=== PATIENT | male | born 1995 | race Caucasian/White ===

== ENCOUNTER 2019-06-13 09:57 | Emergency (ER) | payer SELFPAY ==
[2019-06-13 09:59] VITALS: BP 150/78; PULSE 111; RESP 17; TEMP 37; O2SAT 100; BMI 25.4
--- NOTE | 2019-06-13 10:29 | ED.VISSUMM ---
- ER Visit Summary Date of Service: 06/13/19 Chief Complaint: Left lower jaw dental pain and swelling History of Present Illness: The patient is a 24 M denies any significant past medical history. Patient states for last several days has had pain in his left lower molar and now some swelling. Denies any fever or chills. Physical Examination: Young male no acute distress vital signs stable afebrile. He does not look septic or toxic. H EENT exam moist mucous membranes. Very poor decaying dentition multiple cavities and plaque. His left lower molar appears to be decaying. There is mild gingival swelling. There is no obvious abscess. He has mild swelling of his left lower jaw. He is able to open close his mouth without any difficulty. No trouble swallowing. Floor of his mouth is nontender nonswollen. Currently there is nothing to drain. Neck nontender no lymphadenopathy. Lungs are clear. Heart regular rhythm no murmur. Abdomen soft. Moving all 4 extremities. No edema. Neurologically is awake and alert. Test Results: None Emergency Department Course and Treatment: Patient has very poor dentition with an infected left lower molar. Will be given a dose of Pen-Vee K here. Based on at home 4 times a day. Follow-up with [facility] clinic. Treatment Plan: NDKA 4 times daily. Tylenol Motrin for pain. Follow-up. Disposition: dc Impression: Left dental abscess Dental pain This note was generated with [employer] dictation software. It may contain incorrect words, spelling, and punctuation that were not noted in review of the chart prior to signing ED Disposition - Plan for ED Patient: Referrals: Care Physician,No Primary [Primary Care Provider] -
--- NOTE | 2019-06-13 10:31 | ED.DEP ---
ED Disposition - Plan for ED Patient: Disposition: Home or Assisted Living Instructions: ED Tooth Pain, Dental Abscess Prescriptions: Penicillin Vk [Pen-Vee K , V-Cillin K] 500 mg PO 4X/DAY #40 tab Prescription Printed Referrals: [facility] [NON-STAFF] - As soon as possible Additional Instructions: Ice to your jaw. Tylenol Motrin for pain. Penicillin 4 times a day for the dental infection. Follow-up with either the [facility] or a local dentist as soon as possible.
[2019-06-13] MEDS: Penicillin Vk 250 MG Tablet 500 MG PO (10:38)
[2019-06-13 10:39] VITALS: BP 139/67; PULSE 98; RESP 18; O2SAT 97
== END 2019-06-13 10:46 | disposition home or self-care (01) ==
LOC: ED 10:42
PROVIDERS: Emergency Provider Emergency Medicine
DX: K04.7 Periapical abscess without sinus (principal); K02.9 Dental caries, unspecified; Z72.0 Tobacco use
CPT/HCPCS: 99283

== ENCOUNTER 2021-07-11 07:30 | Emergency (ER) | payer OTHER, SELFPAY ==
[2021-07-11 07:31] VITALS: BP 130/97; PULSE 64; RESP 14; TEMP 36.7; O2SAT 97; BMI 26.3
--- NOTE | 2021-07-11 07:36 | ED.VIS.DENTA ---
HPI History of Present Illness Chief Complaint: Dental Detail of Chief Complaint: Facial swelling due to dental disease Informant: patient and spouse/S.O. Onset/Context/Timing Onset: Today Context: Sudden Onset Timing: Continuous Quality: Facial swelling left maxillary region Location: Left upper teeth Current Severity: Mild Maximum Severity: Mild Worsened by: Nothing Relieved by: NSAIDs and Topicals Associated Symptoms Assocated Symptom - Dental: face swelling; Negative for fever, jaw swelling, cold sensitivity or hot sensitivity Narrative Narrative: Patient is a 26-year-old male who presents because of swelling left side of his face that he noted this morning upon waking. He does admit that his teeth are messed up . He denies sensitivity to hot or cold. He denies fever or chills. He denies rheumatic fever, heart murmur or mitral valve prolapse. He is not immune suppressed. He has no allergies. He is able to open his mouth and closes mouth completely. He has had no drooling. Prior similar symptoms: No Recent Illness/Hospitalization: No PFSH PFSH Medical History no medical history no medical history Home Medications penicillin V potassium 500 mg PO 4X/DAY #40 tab 06/13/19 [Rx Last Taken Unknown] clindamycin HCl [Cleocin HCl] 300 mg PO Q6H #40 capsule 07/11/21 [Rx Last Taken Unknown] hydrocodone-acetaminophen 1 tab PO Q6H PRN PRN 3 Days #10 tablet 07/11/21 [Rx Last Taken Unknown] naproxen 500 mg PO BID #14 tab 07/11/21 [Rx Last Taken Unknown] Allergy/AdvReac Type Severity Reaction Status Date / Time No Known Allergies Allergy Verified 07/11/21 07:30 Surgical History no surgical history no surgical history Social History (Updated 07/11/21 @ 07:[address] Estuardo Chowdary MD) household members: significant other Smoking Status: Light Smoker (<10/day) substance use type: does not use ROS ROS ED Constitutional Constitutional ED: Denies chills, fever(s), subjective or sweats Eyes Eyes: Denies blurry vision or change in vision ENT ENT ED: Reports other Details: Facial swelling of the left maxillary region. Poor dentition ; Denies ear pain, rhinorrhea or sore throat Cardiovascular Cardiovascular: Reports other Details: No history of medic fever, heart murmur, mitral valve prolapse or SBE. ; Denies chest pain, palpitations or racing heartbeat Respiratory/Chest Respiratory/Chest: Denies cough or dyspnea Gastrointestinal Gastrointestinal: Denies nausea or vomiting Musculoskeletal Musculoskeletal: Denies neck pain Integumentary Reports abscess; Denies Abrasions or rash Neurologic Neurologic: Denies headache(s) Allergic/Immunologic Allergic/Immunologic ED: Denies mouth swelling, tongue swelling or urticaria EXAM Physical Exam Const Vital Signs: 07/11/21 07:31 Temperature 98.1 F Temperature Source Temporal Pulse Rate 64 Respiratory Rate 14 Blood Pressure 130/97 H Blood Pressure Mean 108 Pulse Ox 97 Oxygen Delivery Method Room Air Positive well nourished and well developed General Appearance ED: well developed, NAD and other HEENT HEENT Narrative: Patient has remanence of teeth with erosion to the gumline. There is swelling of the gum. There is facial swelling. There is no evidence of facial cellulitis. There is no trismus. There is no evidence of Ludewig's angina. Negative for trauma or tenderness Face and Sinus: sinuses nontender Mouth ED: Yes oral and palatal mucosa normal, Yes lips normal, Yes tongue normal, Yes salivary gland normal and No mouth trauma Mouth: oral and palatal mucosa normal, lips normal, tongue normal, salivary gland normal and No mouth trauma Teeth and Gingiva: abnormal tooth and associated gingiva, caries, gingiva abnormal and poor dentition Throat: posterior oropharynx normal Eyes PERRL and EOMs intact bilaterally Eyes Narrative: There is no pain with ocular movement. General Eye ED: Negative for pale conjunctiva or scleral icterus Neck no lymphadenopathy, supple and no JVD General: normal visual inspection; Negative for anterior neck swelling, tenderness or submandibular swelling Resp normal respiratory effort and clear to auscultation bilaterally Cardio regular rate, regular rhythm, S1 normal heart sound, S2 normal heart sound and no murmurs Neuro oriented x3 and CN's II-XII intact bilaterally Sensorium / Orientation: alert Psych mental status grossly normal Skin no rashes or lesions noted MDM MDM MDM Narrative Medical decision making narrative: Patient has evidence of poor dentition with dental abscess. He has erosion of teeth to gumline. This involves many teeth i.e. canine, bite cuspids and molars. The facial swelling is on the left. We will treat with antibiotics and refer to Dr. Horton. Discharge Plan Triage Chief Complaint: Dental ED Provider: Estuardo Chowdary Dx/Rx/DC Orders Clinical Impression: Dental abscess, Dental caries extending into pulp Prescriptions: New clindamycin HCl [Cleocin HCl] 300 MG capsule 300 mg PO Q6H Qty: 40 RF: 0 hydrocodone-acetaminophen [hydrocodone-acetaminophen] 1 TABLET tablet 1 tab PO Q6H PRN PRN (Reason: Pain) 3 Days Qty: 10 RF: 0 naproxen 500 MG tablet 500 mg PO BID Qty: 14 RF: 0 No Action penicillin V potassium 250 MG tablet 500 mg PO 4X/DAY Qty: 40 RF: 0 Primary Care Provider: Care Physician,No Primary Referrals: Bryce Mullins DDS [STAFF PHYSICIAN] - 5-7 Days Care Physician,No Primary [Primary Care Provider] - Disposition Disposition: Home, Self Care
[2021-07-11] MEDS: HYDROcodone Bitartrate/Apap 5/325 Tablet PO (07:48)
[2021-07-11] MEDS: Clindamycin HCl 150 MG Capsule 300 MG PO (07:49)
[2021-07-11] MEDS: Naproxen 250 MG Tablet 500 MG PO (07:49)
== END 2021-07-11 07:54 | disposition home or self-care (01) ==
PROVIDERS: Emergency Provider Emergency Medicine; Visit Provider Emergency Medicine
DX: K04.7 Periapical abscess without sinus (principal); K02.9 Dental caries, unspecified; F17.200 Nicotine dependence, unspecified, uncomplicated
CPT/HCPCS: 99283

== ENCOUNTER 2025-01-12 16:46 | Emergency (ER) | payer OTHER, SELFPAY ==
[2025-01-12 16:47] VITALS: BP 158/98; PULSE 106; RESP 20; TEMP 36.4; O2SAT 100; BMI 31.1
--- NOTE | 2025-01-12 16:58 | EX.ED.UPPERE ---
HPI History of Present Illness HPI Narrative: 29-year-old male. No significant past medical history. Nirlx-vaax-ercdeqal. Started getting swelling of his right ring finger and now his ring stuck. He says been swelling for a week. Denies any injury or trauma. Chief Complaint: Foreign Body Informant: patient Occured/Mechanism Mechanism/Context: No injury and No blunt trauma Onset/Context/Timing Onset: Days Context: Gradual Onset Timing: Continuous Quality of Pain: Dull and Aching Current Severity: Mild Maximum Severity: Mild Narrative Narrative: 29-year-old sehmc-enai-zhofqqau male with a ring stuck on his right ring finger. Swelling of the finger and redness. Denies any trauma. No prior history of any surgery to that hand. Prior similar symptoms: No Recent Illness/Hospitalization: No PFSH PFSH Medical History no medical history no medical history Home Medications ?Medication ?Instructions ?Recorded ?Last Taken ?Type cephalexin 500 mg capsule 500 mg PO Q6 #40 CAPSULES 01/12/25 Unknown Rx Allergy/AdvReac Type Severity Reaction Status Date / Time No Known Allergies Allergy Verified 01/12/25 16:48 Family History no significant family his Surgical History no surgical history Social History household members: significant other Smoking Status: Current every day smoker tobacco type: cigarettes substance use type: does not use ROS ROS ED ROS Narrative Denies recent illness. Constitutional Constitutional ED: Denies chills or fever(s) Eyes Eyes: Denies blurry vision ENT ENT ED: Denies ear pain Cardiovascular Cardiovascular: Denies chest pain Respiratory/Chest Respiratory/Chest: Denies cough or dyspnea Gastrointestinal Gastrointestinal: Denies abdominal pain Genitourinary Genitourinary ED: Denies dysuria or hematuria Musculoskeletal Musculoskeletal: Denies back pain Integumentary Denies abscess Neurologic Neurologic: Denies headache(s) Psychiatric Psychiatric: Denies anxiety or depression Endocrine Endocrinology: Denies cold intolerance Hematologic/Lymphatic Hematologic/Lymphatic: Denies easy bleeding Allergic/Immunologic Allergic/Immunologic ED: Denies mouth swelling, tongue swelling or urticaria EXAM Physical Exam Narrative Exam Narrative: 29-year-old male sitting upright in bed vital signs are stable afebrile. No acute distress. H EENT exam pupils round react light. Moist mucous membranes. Neck nontender. Lungs clear. Heart regular rhythm rate about 5 no murmur. Chest wall ribs nontender. Abdomen soft nontender. Moving all 4 extremities. Nontender no edema except right hand right long finger the ring is between his MCP and PIP distally there is swelling and redness. The rings go need to be cut off because the finger is too swollen to remove the ring. Hands neurovascularly intact with normal cap refill and intact sensation. No gross bony deformities. No lymphangitic streaking or axillary lymphadenopathy. Const Vital Signs: 01/12/25 16:47 01/12/25 16:51 Temperature 97.6 F L Temperature Source Temporal Pulse Rate 106 H Respiratory Rate 20 H Respiratory Effort Normal Non-Labored Respiratory Pattern Normal Blood Pressure 158/98 H Blood Pressure Mean 118 Pulse Ox 100 Oxygen Delivery Method Room Air MDM MDM MDM Narrative Medical decision making narrative: 29-year-old male kyagb-ibff-pgkugxyl has a ring stuck on his right finger need to be removed and the finger itself looks infected. No trauma. I do not think he needs any imaging. Nurses are removing the ring and I will reevaluate the area. Repeat exam around 6:30 PM. Nurses remove the ring off. We applied let the helping with the discomfort to get the ring off. Significant swelling distal to the PIP. However he is able to flex and extend but is limited due to the amount of swelling. There is no lymphangitic streaking. I do feel this is cellulitis on the finger. There is no axillary lymphadenopathy. He was given a p.o. Keflex here. To be placed on Keflex 4 times a day for 10 days. Motrin and Tylenol. Follow-up if is not improving or return if worse. Patient is comfortable to plan. He does have cap refill on his finger and touch sensation distally to the area where the ring was. History & Record Review Discussion w/independent historian: Patient Additional record(s) reviewed:: No prior records Discharge Plan Triage Chief Complaint: Foreign Body ED Provider: Manny Covarrubias Dx/Rx/DC Orders Clinical Impression: Cellulitis of finger Instructions: ED Cellulitis Prescriptions: New cephalexin 500 mg capsule 500 mg PO Q6 Qty: 40 0RF Primary Care Provider: Care Physician,No Primary Referrals: Care Physician,No Primary [Primary Care Provider, Medical] Lalo Hernandez, [employer] SALES [employer]SULTANT-[employer] [facility] - 3-5 Days if not improving Activity Restrictions/Additional Instructions: Ice and elevate your finger to decrease swelling and pain. Motrin for pain and swelling Tylenol for pain. The antibiotic Keflex 4 times a day till gone to resolve the infection. If the infection is getting worse your finger is getting more swollen and streaking up in your hand or your forearm you are feeling worse or develop a fever return. Otherwise follow-up with the [facility] as needed. No Drolet on that hand at all until this is totally back to normal. Print Language: Mohawk Disposition Disposition: Home, Self Care
[2025-01-12] MEDS: Lidocaine/Epi/Tetracaine 50 ML 1 APPLIC TOPICAL (17:21)
--- OUTSIDE RECORDS SUMMARY | 2025-01-12 17:33 | XMS RPT_ITS | CCD ---
Author Organization [facility] Medications Current Medications Medication Drug Class(es) Dates Sig (Normalized) Sig (Original) acetaminophen 325 mg / HYDROcodone bitartrate 5 mg oral tablet (1 source) Opioid Agonist Start: 07-11-2021 take 1 tablet by mouth every six hours as needed Hydrocodone-Aceta minophen Active 1 TABLET PO EVERY 6 HOURS NEEDED 10 3 July 11, 2021 7:41am clindamycin 300 mg oral capsule (1 source) Lincosamide Antibacterial Start: 07-11-2021 take 1 capsule by mouth every six hours Clindamycin Hcl (Cleocin Hcl) 300 MG capsule Active 300 MG PO EVERY 6 HOURS July 11, 2021 7:41am naproxen 500 mg oral tablet (1 source) Nonsteroidal Anti-inflammatory Drug Start: 07-11-2021 take 500 mg by mouth twice daily Naproxen Active 500 MG PO TWICE A DAY July 11, 2021 7:42am penicillin v potassium 250 mg oral tablet (1 source) Start: 06-13-2019 take 500 mg by mouth four times daily Penicillin V Potassium Active 500 MG PO 4 TIMES DAILY June 13, 2019 10:32am Problems Problem Classification Problem Date Documented Da te Episodic/Chronic Disorders of teeth and jaw (2 sources) Carious exposure of pulp ; Translations: [Dental caries, unspecified] Episodic Results Test Name Value Interpretation Reference Range Facil ity Emergency Department Summary on 07-11-2021 Emergency Department Summary [facility] Medical Records Department [address] [place] [address] Emergency Department Summary 07/11/21 MR#: [id number] Acct: [id number] Name: AKTHRYN TOSCANO Rep #: [id number] : 1995 26 From: Estuardo Chowdary MD PCP: Care Physician,No Primary Status:REG ER Location: ED HPI History of Present Illness Chief Complaint: Dental Detail of Chief Complaint: Facial swelling due to dental disease Informant: patient and spouse/S.O. Onset/Context/Timing Onset: Today Context: Sudden Onset Timing: Continuous Quality: Facial swelling left maxillary region Location: Left upper teeth Current Severity: Mild Maximum Severity: Mild Worsened by: Nothing Relieved by: NSAIDs and Topicals Associated Symptoms Assocated Symptom - Dental: face swelling; Negative for fever, jaw swelling, cold sensitivity or hot sensitivity Narrative Narrative: Patient is a 26-year-old male who presents because of swelling left side of his face that he noted this morning upon waking. He does admit that his teeth are messed up . He denies sensitivity to hot or cold. He denies fever or chills. He denies rheumatic fever, heart murmur or mitral valve prolapse. He is not immune suppressed. He has no allergies. He is able to open his mouth and closes mouth completely. He has had no drooling. Prior similar symptoms: No Recent Illness/Hospitalizat ion: No PFSH PFSH Medical History no medical history no medical history Home Medications penicillin V potassium 500 mg PO 4X/DAY #40 tab 06/13/19 [Rx Last Taken Unknown] clindamycin HCl [Cleocin HCl] 300 mg PO Q6H #40 capsule 07/11/21 [Rx Last Taken Unknown] hydrocodone-acetamin ophen 1 tab PO Q6H PRN PRN 3 Days #10 tablet 07/11/21 [Rx Last Taken Unknown] naproxen 500 mg PO BID #14 tab 07/11/21 [Rx Last Taken Unknown] Allergy/AdvReac Type Severity Reaction Status Date / Time No Known Allergies Allergy Verified 07/11/21 07:30 Surgical History no surgical history no surgical history Social History (Updated 07/11/21 @ 07:[address] Estuardo Chowdary MD) household members: significant other Smoking Status: Light Smoker (<10/day) substance use type: does not use ROS ROS ED Constitutional Constitutional ED: Denies chills, fever(s), subjective or sweats Eyes Eyes: Denies blurry vision or change in vision ENT ENT ED: Reports other Details: Facial swelling of the left maxillary region. Poor dentition ; Denies ear pain, rhinorrhea or sore throat Cardiovascular Cardiovascular: Reports other Details: No history of medic fever, heart murmur, mitral valve prolapse or SBE. ; Denies chest pain, palpitations or racing heartbeat Respiratory/Chest Respiratory/Chest: Denies cough or dyspnea Gastrointestinal Gastrointestinal: Denies nausea or vomiting Musculoskeletal Musculoskeletal: Denies neck pain Integumentary Reports abscess; Denies Abrasions or rash Neurologic Neurologic: Denies headache(s) Allergic/Immunologic Allergic/Immunologic ED: Denies mouth swelling, tongue swelling or urticaria EXAM Physical Exam Const Vital Signs: 07/11/21 07:31 Temperature 98.1 F Temperature Source Temporal Pulse Rate 64 Respiratory Rate 14 Blood Pressure 130/97 H Blood Pressure Mean 108 Pulse Ox 97 Oxygen Delivery Method Room Air Positive well nourished and well developed General Appearance ED: well developed, NAD and other HEENT HEENT Narrative: Patient has remanence of teeth with erosion to the gumline. There is swelling of the gum. There is facial swelling. There is no evidence of facial cellulitis. There is no trismus. There is no evidence of Ludewig's angina. Negative for trauma or tenderness Face and Sinus: sinuses nontender Mouth ED: Yes oral and palatal mucosa normal, Yes lips normal, Yes tongue normal, Yes salivary gland normal and No mouth trauma Mouth: oral and palatal mucosa normal, lips normal, tongue normal, salivary gland normal and No mouth trauma Teeth and Gingiva: abnormal tooth and associated gingiva, caries, gingiva abnormal and poor dentition Throat: posterior oropharynx normal Eyes PERRL and EOMs intact bilaterally Eyes Narrative: There is no pain with ocular movement. General Eye ED: Negative for pale conjunctiva or scleral icterus Neck no lymphadenopathy, supple and no JVD General: normal visual inspection; Negative for anterior neck swelling, tenderness or submandibular swelling Resp normal respiratory effort and clear to auscultation bilaterally Cardio regular rate, regular rhythm, S1 normal heart sound, S2 normal heart sound and no murmurs Neuro oriented x3 and CN's II-XII intact bilaterally Sensorium / Orientation: alert Psych mental status grossly normal Skin no rashes or lesions noted MDM MDM MDM Narrative Medical decision making narrative: Patient h (more content not included)... Normal [facility] Vital Signs Date Time Vital Sign Value Performing Clinician Faci christiany 07-11-2021 07:31-0400 Body height 172.72 cm [facility] Work Phone: 07-11-2021 07:31-0400 Body mass index (BMI) [Ratio] 26.3 kg/m2 [facility] Work Phone: 07-11-2021 07:31-0400 Body temperature 98.1 [degF] [facility] Work Phone: 07-11-2021 07:31-0400 Body weight 78.6 kg [facility] Work Phone: 07-11-2021 07:31-0400 Diastolic blood pressure 97 mm[Hg] [facility] Work Phone: 07-11-2021 07:31-0400 Heart rate 64 /min [facility] Work Phone: 07-11-2021 07:31-0400 Respiratory rate 14 /min [facility] Work Phone: 07-11-2021 07:31-0400 SaO2% (BldA) [Mass fraction] 97 % [facility] Work Phone: 07-11-2021 07:31-0400 Systolic blood pressure 130 mm[Hg] [facility] Work Phone: Encounters Encounter Date Encounter Type Care Provider Facility Start: 07-11-2021 End: 07-11-2021 Emergency department patient visit [facility]Emergency [facility] Plan of Treatment Date Care Activity Detail Author Patient referral [facility] Work Phone: Payers Date Payer Category Payer Policy ID Self-pay [employer] [id number] Unknown [employer] [id number] Unknown [employer] [id number] Social History Date Type Detail Facility Start: 07-11-2021 Tobacco smoking stat [facility] Unknown if ever smoked [facility] Work Phone: Start: 06-13-2019 [place] [facility] [place]: Start: 1995 Sex Assigned At Male [facility] Work Phone: Evaluation note Note Date & Type Note Facility Evaluation note No assessment information availa ble [facility] Work Phone: Chief Complaint and Reason for Visit Chief Complaint dental Advance Directives No Advanced Directives Records Found Advance Directive Response Recorded Date/ Time Living Will No July 11, 2021 7 :47am Power of Long Term Care Pharmacist No July 11, 2021 7:47am Summary Purpose Family History No Family History Records Found Additional Source Comments Goals (unrecognized section and content) Goals may be documented in a n alternate section (unrecognized sect ion and content) No Status Records Found INFORMATION SOURCE (unrecogn ized section and content) DATE CREATED AUTHOR 07/12/2021 [facility] FOR RECORDS PERTAINING TO PATIENTS WHO ARE OR HAVE BEEN ENROLLED IN A CHEMICAL DEPENDENCY/SUBSTANCEABUSE PROGRAM, SOME INFORMATION MAY BE OMITTED. This clinical summary was aggregated from multiple sources. Caution should be exercised in using it in the provision of clinical care. This summary normalizes information from multiple sources, and as a consequence, information in this document may materially change the coding, format and clinical context of patient data. In addition, data may be omitted in some cases. CLINICAL DECISIONS SHOULD BE BASED ON THE PRIMARY CLINICAL RECORDS. [facility]. provides no warranty or guarantee of the accuracy or completeness of information in this document.
== END 2025-01-12 18:44 | disposition home or self-care (01) ==
PROVIDERS: Emergency Provider Emergency Medicine; Visit Provider Emergency Medicine
DX: S60.444A External constriction of right ring finger, initial encounter (principal); W49.04XA Ring or other jewelry causing external constriction, initial encounter; L03.011 Cellulitis of right finger; F17.210 Nicotine dependence, cigarettes, uncomplicated
CPT/HCPCS: 99282; A4216